=== PATIENT | female | born 1990 | race Caucasian/White ===

== ENCOUNTER 2022-09-21 15:17 | Emergency (ER) | payer BC, SELFPAY ==
--- NOTE | 2022-09-21 15:19 | ED.URI ---
HPI - URI/Sore Throat General Chief Complaint: Upper Respiratory Infection Stated Complaint: Headache, diarrhea, fever, sore throat Source: patient and RN notes reviewed Mode of arrival: ambulatory Limitations: no limitations History of Present Illness HPI Narrative: 31-year-old female presents with concern for sore throat, fever, headache, diarrhea, chest discomfort. She reports she has taken Tylenol. She denies cough, vomiting. MD elicited complaint: fever and sore throat Related Data Allergies Allergy/AdvReac Type Severity Reaction Status Date / Time No Known Allergies Allergy Verified 09/21/22 15:20 Review of Systems Review of Systems: CONSTITUTIONAL: Reports malaise,fever. EYES: Denies visual changes, redness, or discharge. ENT: Denies rhinorrhea, congestion, sinus pain, otalgia. Reports sore throat. CARDIOVASCULAR: Denies chest pain, palpitations, or edema. RESPIRATORY: Denies cough. Denies dyspnea. GASTROINTESTINAL: Denies abdominal pain, nausea, vomiting. Reports diarrhea SKIN: Denies rash or itching. MUSCULOSKELETAL: Denies myalgia. NEUROLOGIC: Denies headache. All systems reviewed & are unremarkable except as noted in HPI and below PMFSH Past Medical History Medical History (Updated 09/21/22 @ 15:47 by Mindy Hartley NP) Diabetes mellitus Surgical History Surgical History No significant past surgical history Social History Social History Smoking status: Never smoker Comments At time of signature, agree with nursing past medical, surgical, social and family history. There is no relevant family history pertinent to the presenting complaint Exam Narrative: GENERAL: Well-appearing, well-nourished, and in no acute distress. HEAD: Normocephalic EYES: PERRLA, conjunctivae clear ENT: Nares clear, turbinates edematous and erythematous, clear discharge. Mucous membranes moist. TM pearly youssef with dull light reflex bilaterally; no tragal tenderness. Oropharynx not erythematous without lesions. Tonsils not enlarged and without exudate, no drooling, no hoarseness, no trismus, uvula midline. NECK: Supple. No lymphadenopathy CHEST: Clear to auscultation, breath sounds equal. No wheezing, rhonchi, rales, or stridor. No respiratory distress, speaks in full sentences. HEART: Regular rate and rhythm. No murmur heard. SKIN: Warm, dry, no rash. NEURO: Alert and oriented x3. PSYCH: Normal mood and affect Course Course Emergency Course: Patient is aware of diagnosis, understands and agrees to treatment plan. Anticipatory guidance given. Patient agrees to follow-up as directed and is aware of reasons to seek care at the emergency department. Portions of this record may have been created with voice recognition software Level of Care: Express Care Visit Vital Signs Vital signs: Reviewed. MDM - URI/Sore Throat MDM Narrative Medical decision making narrative: Differential diagnosis considered: Monson virus, strep pharyngitis, allergic rhinitis, upper respiratory tract infection, sinusitis, rhinosinusitis, nasopharyngitis. viral pharyngitis, otitis media, otitis externa, pneumonia, bronchitis, viral cough syndrome, viral syndrome, and influenza. Exam findings show no acute concerns or changes; patient is non-toxic appearing and is in no distress. Patient is appropriate for outpatient treatment and follow-up. Lab Data Attestation: I reviewed the patient's lab results. Critical Care Time Critical Care Time Critical Care Time: No Discharge Plan Discharge Clinical Impression: Acute streptococcal pharyngitis Patient Disposition: Home, Self-Care Condition: Stable Instructions: Strep Throat (ED) Additional Instructions: -Take the medication as prescribed. Throw away the toothbrush after 24hours of antibiotic. -Eat and drink things that are easy to swallow, like tea or soup, or popsicles to suck on. -O
[2022-09-21 15:25] VITALS: BP 124/68; PULSE 83; RESP 16; TEMP 36.3; O2SAT 100
[2022-09-21 15:43] VITALS: BP 124/68; PULSE 83; RESP 16; TEMP 36.3; O2SAT 100
== END 2022-09-21 15:51 | disposition home or self-care (01) ==
PROVIDERS: Emergency Provider Nurse Practitioner
DX: J02.0 Streptococcal pharyngitis (principal); Z20.822 Contact with and (suspected) exposure to COVID-19; E11.9 Type 2 diabetes mellitus without complications
CPT/HCPCS: 87426; 87804; 87880; 99213; C9803; G0463

== ENCOUNTER 2023-07-02 14:34 | Emergency (ER) | payer OTHER, SELFPAY ==
--- NOTE | ~2023-07-02 | CT_ITS ---
EXAMINATION: CT cervical spine wo con DATE: 07/02/2023 18:50 INDICATION: neck pain TECHNIQUE: Computed tomography (CT) of the cervical spine was performed without intravenous contrast. Automated exposure control and iterative reconstruction technique were employed. The dose-length pro duct was 537.38 mGy-cm. COMPARISON: 06/14/2018. FINDINGS: Vertebral Body Alignment: Intact. Craniocervical and atlantoaxial alignment: Minimal degenerative change. Alignment intact. Osseous structures/fracture: No evidence of a lytic or blastic process in the visualized spine. No e vidence of acute fracture. Cervical soft tissues: The paraspinal soft tissues planes are maintained. Multiple bilateral calcifie d and noncalcified thyroid nodules measuring up to 1.7 cm Degenerative changes: No significant degenerative changes. IMPRESSION: No acute fracture or traumatic malalignment in the cervical spine. No severe central canal or neural foraminal narrowing. Multiple calcified and noncalcified thyroid nodules, recommend nonemergent, outpatient thyroid ultras ound for further characterization. Reviewed, dictated and finalized at location [facility]. IMPRESSION: No acute fracture or traumatic malalignment in the cervical spine. No severe central canal or neural foraminal narrowing. Multiple calcified and noncalcified thyroid nodules, recommend nonemergent, out patient thyroid ultrasound for further characterization.
--- NOTE | ~2023-07-02 | XR_ITS ---
XR chest 2V DATE: 07/02/2023 15:01 INDICATION: Chest pain TECHNIQUE: PA and lateral views COMPARISON: 03/15/2019 2 view chest is not available from PACS for review but was reported negative. FINDINGS: Normal heart size. No hilar or mediastinal enlargement. No pulmonary infiltrate or consolid ation, pleural effusion or pulmonary vascular congestion or pneumothorax is detected. IMPRESSION: Negative Reviewed, dictated and finalized at location [facility]. IMPRESSION: Negative
[2023-07-02 14:42] VITALS: BP 137/79; PULSE 60; RESP 18; TEMP 36.6; O2SAT 100
--- NOTE | 2023-07-02 14:43 | ECG_ITS ---
Measurements Intervals [place] Rate: 58 P: -3 MO: 149 QRS: 7 QRSD: 95 T: -2 QT: 419 QTc: 414 Interpretive Statements SINUS BRADYCARDIA MODERATE VOLTAGE CRITERIA FOR LVH, CONSIDER NORMAL VARIANT [MEETS CRITERIA IN ONE OF: R(aVL), S(V1), R(V5), R(V5/V6)+S(V1)] NO PREVIOUS ECG AVAILABLE FOR COMPARISON Electronically Signed On 07-03-2023 13:21:18 CDT by Eliud Blanco M.D.
[2023-07-02 14:52] LABS: Basophils Percent Auto 0.4 % (0.2-1.2); Eosinophils Absolute Auto 0.3 K/mm3 (0-0.3); Eosinophils Percent Auto 2.6 % (0-4.4); Hematocrit 38.6 % (37.0-47.0); Hemoglobin 13.1 g/dL (12.0-15.0); Immature Granulocyte Absolute 0.03 K/mm3 (0.00-0.031); Immature Granulocyte Percent A 0.3 % (0-0.5); Lymphocytes Absolute Auto 3.53 K/mm3 (0.9-3.2); Lymphocytes Percent Auto 34.6 % (18.3-44.2); Mean Corpuscular HGB Conc 33.9 g/dl (32-36); Mean Corpuscular Hemoglobin 29.6 pg (26-34); Mean Corpuscular Volume 87.3 fl (80-100); Mean Platelet Volume 9.3 fl (7.4-10.4); Monocytes Absolute Auto 0.4 K/mm3 (0.1-0.6); Monocytes Percent Auto 4.1 % (2.6-8.5); Neutrophils Absolute Auto 5.9 K/mm3 (1.3-6.7); Platelet Count Result 414 k/mm3 (150-375); Red Blood Count 4.42 M/mm3 (4.2-5.4); Red Cell Distribution Width 12.5 % (11.5-14.5); White Blood Count 10.2 K/mm3 (4.5-10.0)
[2023-07-02 15:02] LABS: Alanine Aminotransferase 23 U/L (6-35); Albumin Level 4.4 g/dL (3.5-5.1); Alkaline Phosphatase 56 U/L (38-126); Anion Gap 6 mmol/L (4-12); Aspartate Amino Transferase 27 U/L (14-36); Bilirubin,Total 0.4 mg/dL (0.2-1.3); Blood Urea Nitrogen 13 mg/dL (7-17); Calcium 9.2 mg/dL (8.4-10.2); Carbon Dioxide 26 mmol/L (22-30); Chloride 104 mmol/L (98-107); Estimated CRCL calculation 90 ml/min; Estimated Glomerular Filt Rate > 60; Glucose 98 mg/dL (65-110); Lipase 121 U/L (23-300); Potassium 3.5 mmol/L (3.4-5.0); Sodium 136 mmol/L (137-145)
[2023-07-02 15:03] LABS: INR 0.9; Partial Thromboplastin Time 25.6 Seconds (22.3-36.8); Prothrombin Time 12.5 Seconds (11.1-14.7)
[2023-07-02 15:14] LABS: Troponin I < 0.012 ng/mL (0.000-0.034)
[2023-07-02 15:36] VITALS: BP 117/83; PULSE 58; PULSE 59; RESP 17; O2SAT 98
[2023-07-02 16:54] VITALS: BP 110/74; PULSE 55; RESP 16; O2SAT 100
[2023-07-02 17:08] VITALS: O2SAT 100
--- NOTE | 2023-07-02 17:25 | ED.CHESTPAIN ---
HPI - Chest Pain General Chief Complaint: Chest Pain <Yessi Morris PA-C - Last Filed: 07/02/23 19:23> Stated Complaint: chest pain, swelling neck, numb finger <Yessi Morris PA-C - Last Filed: 07/02/23 19:23> Time Seen by Provider: 07/02/23 17:03 <Yessi Morris PA-C - Last Filed: 07/02/23 19:23> History of Present Illness HPI narrative: 32 Year old female with a reported history of type 2 diabetes and hyperlipidemia presents emergency department for multiple medical complaints. She is complaining of intermittent chest pain for 1 month. Patient states the chest pain is located just to the left of her sternum. She states it seems to occur when she is moving and while at work, however she did notice it occurred while she was lying in her bed the other night during a storm. She states the chest pain is associated with shortness of breath and lightheadedness. She describes that the pain is a squeezing pain. She is also reporting pain to her posterior neck that she describes as tightness that started 2 days ago. States she woke up in the morning and has since felt the tightness that is worse with movement. She denies recent injury or trauma. She is also reporting intermittent tingling and numbness in all of her fingers that has been going on for about a month as well. States she brought this up her PCP recheck her A1c which is within normal range. States she has been treated for diabetes given improvement in her A1c. She reports cardiac history and her grandmother, otherwise denies known familial cardiac disease. Denies lower extremity edema, recent surgeries or hospitalizations, history of VTE. States she has seen her PCP multiple times regarding her chest pain and was started on anxiety medications which have helped some. States she is supposed to follow-up with a medical file clerk but she has yet to set up an appointment. She was told by her PCP if her chest pain continues to report to the ER for evaluation which prompted her to come today. She is also complaining of a rash to her left axilla that occurred approximately 1 week ago. She describes the pain as burning. Denies fever, cough congestion. <Yessi Morris PA-C - Last Filed: 07/02/23 19:23> Related Data Allergies/Adverse Reactions: Allergies Allergy/AdvReac Type Severity Reaction Status Date / Time No Known Allergies Allergy Verified 07/02/23 17:03 <Yessi Morris PA-C - Last Filed: 07/02/23 19:23> Review of Systems Review of Systems: CONSTITUTIONAL: Denies fever, chills, or sweats. EYES: Denies visual changes, redness, or discharge. ENT: Denies rhinorrhea, congestion, sore throat, or otalgia. CARDIOVASCULAR: See HPI RESPIRATORY: Denies cough or dyspnea. GASTROINTESTINAL: Denies abdominal pain, nausea, vomiting, or diarrhea. GENITOURINARY: Denies dysuria or hematuria. SKIN: See HPI MUSCULOSKELETAL: See HPI NEUROLOGIC: Denies headache, numbness, or weakness. PSYCHIATRIC: Denies anxiety or depression. <Yessi Morris PA-C - Last Filed: 07/02/23 19:23> [facility] Past Medical History Medical History: Medical History (Updated 07/03/23 @ 00:09 by Sterling Betancur) Diabetes mellitus <Yessi Morris PA-C - Last Filed: 07/02/23 19:23> Surgical History Surgical History: Surgical History No significant past surgical history <Yessi Morris PA-C - Last Filed: 07/02/23 19:23> Social History Social History: Social History Smoking status: Never smoker <Yessi Morris PA-C - Last Filed: 07/02/23 19:23> Exam Narrative: GENERAL: Well-appearing, well-nourished, and in no acute distress. HEAD: Normocephalic, atraumatic. EYES: PERRLA and EOMI. ENT: Nares clear, no rhinorrhea or epistaxis. Mucous membranes moist. NECK: Supple. CHEST: Clear to auscultation. No respiratory
--- NOTE | 2023-07-02 17:43 | ECG_ITS ---
Measurements Intervals [place] Rate: 44 P: 17 WI: 137 QRS: 11 QRSD: 93 T: 2 QT: 452 QTc: 389 Interpretive Statements SINUS BRADYCARDIA WITH SINUS ARRHYTHMIA MINIMAL VOLTAGE CRITERIA FOR LVH, CONSIDER NORMAL VARIANT [MEETS CRITERIA IN ONE OF: R(aVL), S(V1), R(V5), R(V5/V6)+S(V1)] COMPARED TO ECG 07/02/2023 14:49:59 SINUS ARRHYTHMIA NOW PRESENT Electronically Signed On 07-03-2023 13:22:24 CDT by Eliud Blanco M.D.
[2023-07-02] MEDS: CYCLOBENZAPRINE HCL 10 MG TABLET PO (17:44)
[2023-07-02] MEDS: IBUPROFEN 400 MG TABLET 800 MG PO (17:44)
[2023-07-02 18:23] LABS: Troponin I < 0.012 ng/mL (0.000-0.034)
[2023-07-02 18:41] VITALS: BP 121/81; PULSE 58; RESP 19; O2SAT 100
[2023-07-02 19:30] VITALS: BP 122/80; PULSE 60; RESP 18; O2SAT 98
== END 2023-07-02 19:31 | disposition home or self-care (01) ==
PROVIDERS: Emergency Medicine; Emergency Provider Physician Assistant; PCP Internal Medicine
DX: S16.1XXA Strain of muscle, fascia and tendon at neck level, initial encounter (principal); R07.89 Other chest pain; B37.9 Candidiasis, unspecified; L30.4 Erythema intertrigo; E04.1 Nontoxic single thyroid nodule; E11.9 Type 2 diabetes mellitus without complications; E78.5 Hyperlipidemia, unspecified
CPT/HCPCS: 36415; 71046; 72125; 80053; 81025; 83690; 84484; 85025; 85610; 85730; 93005; 99284; A9270

== ENCOUNTER 2023-08-19 08:25 | Outpatient (CLI) | payer OTHER, SELFPAY ==
--- NOTE | 2023-08-19 08:54 | ECHO_ITS ---
Patient Info Name: Darlene Pineda Age: 32 years : 1990 Gender: Female Ht: 63 in Wt: 235 lbs BSA: 2.23 m2 HR: 53 bpm BP: 129 / 88 mmHg Technical Quality: Fair Exam Date: 08/19/2023 9:05 AM Exam Location: Echo Lab Patient Status: Outpatient Admit Date: 08/19/2023 Staff Ordering Physician: Tk Tillman DO [employer]: Gordy Figueroa RDCS Attending Provider: Tk Tillman DO Referring Physician: Primo BOOKER; Exam Type: CA echo doppler color flow Study Info Indications R06.09 - Other forms of dyspnea Complete two-dimensional, color flow and Doppler transthoracic echocardiogram is performed. Summary 1. Complete two-dimensional, color flow and Doppler transthoracic echocardiogram is performed. 2. Left ventricular chamber dimension is normal. 3. Left ventricular systolic function is normal, estimated at 65-70%. 4. The left ventricular diastolic function is normal. 5. E/e' 6 is not elevated. 6. There is trace mitral valve regurgitation. 7. No pulmonary hypertension, estimated pulmonary arterial systolic pressure is 29 mmHg. Left Ventricle E/e' 6 is not elevated. Left ventricular chamber dimension is normal. Left ventricular systolic function is normal, estimated at 65-70%. The left ventricular diastolic function is normal. Right Ventricle Right ventricular systolic function is normal and with normal TAPSE 2.5 cm. Right ventricular chamber dimension is normal. Left Atria Left atrial chamber dimension is normal. Right Atria Right atrial chamber dimension is normal. Aortic Valve The aortic valve is trileaflet. There is no aortic valve stenosis. There is no aortic valve regurgitation. Pulmonic Valve There is no pulmonic regurgitation. Mitral Valve There is no mitral valve stenosis. There is trace mitral valve regurgitation. Tricuspid Valve There is no tricuspid valve regurgitation. No pulmonary hypertension, estimated pulmonary arterial systolic pressure is 29 mmHg. Pericardium/Pleural There is no pericardial effusion. Inferior Vena Cava Normal inferior vena cava with >50% collapse upon inspiration consistent with normal right atrial pressure, 5 mmHg. Aorta The aortic root size at the sinus of Valsalva is normal. Left Ventricular Outflow Tract Name Value Normal LVOT 2D LVOT Diameter 2.0 cm LVOT Doppler LVOT Peak Gradient 5 mmHg LVOT Mean Gradient 2 mmHg LVOT VTI 24 cm LVOT VTI/AV VTI Ratio 0.7 LVOT Stroke Volume 72 ml LVOT CO 3.8 l/min LVOT CI 1.7 l/min/m2 Pulmonic Valve Name Value Normal RVOT Doppler RVOT Peak Gradient 3 mmHg PV Doppler PV Peak Gradient 5 mmHg PV Regurgit
--- NOTE | 2023-08-19 10:39 | EST_ITS ---
Patient Info Name: Darlene Pineda Age: 32 years : 1990 Gender: Female Ht: 63 in Wt: 235 lbs BSA: 2.23 m2 HR: 60 bpm BP: 110 / 63 mmHg Heart Rhythm: Sinus Rhythm Exam Date: 08/19/2023 10:52 AM Exam Location: Echo Lab Patient Status: Outpatient Admit Date: 08/19/2023 Staff Ordering Physician: Tk Tillman DO Attending Provider: Tk Tillman DO Exercise Technologist: Yasmine Kennedy CT Exercise Physician: Tk Tillman DO Exam Type: CA stress test treadmill Study Info Indications R06.09 - Other forms of dyspnea R07.89 - Other chest pain A treadmill exercise stress test was performed. Summary 1. 1. Negative Willie exercise stress test for ischemic ST changes by ECG criteria. 2. 2. Good functional capacity, achieving 8.9 MET of workload. 3. 3. Hypertensive response to exercise. 4. 4. Appropriate HR response to exercise. 5. 5. Appropriate HR recovery at 1 minute post exercise. 6. 6. No imaging with stress testing. 7. 7. Patient informed of the above results. Protocol: Willie Stress ECG Details Stage: REST Duration (min): 2 min : 53 sec Speed (mph): 0.0 Grade (%): 0 HR (bpm): 61 SBP (mmHg): 110 DBP (mmHg): 63 METS: --- Stage: REST Duration (min): 11 min : 20 sec Speed (mph): 0.0 Grade (%): 0 HR (bpm): 69 SBP (mmHg): 110 DBP (mmHg): 63 METS: --- Stage: STAGE 1 Duration (min): 1 min : 0 sec Speed (mph): 1.7 Grade (%): 10 HR (bpm): 116 SBP (mmHg): 110 DBP (mmHg): 63 METS: --- Stage: STAGE 1 Duration (min): 2 min : 0 sec Speed (mph): 1.7 Grade (%): 10 HR (bpm): 126 SBP (mmHg): 110 DBP (mmHg): 63 METS: --- Stage: STAGE 1 Duration (min): 3 min : 0 sec Speed (mph): 1.7 Grade (%): 10 HR (bpm): 120 SBP (mmHg): 166 DBP (mmHg): 73 METS: --- Stage: STAGE 2 Duration (min): 1 min : 0 sec Speed (mph): 2.5 Grade (%): 12 HR (bpm): 141 SBP (mmHg): 166 DBP (mmHg): 73 METS: --- Stage: STAGE 2 Duration (min): 2 min : 0 sec Speed (mph): 2.5 Grade (%): 12 HR (bpm): 148 SBP (mmHg): 208 DBP (mmHg): 69 METS: --- Stage: STAGE 2 Duration (min): 3 min : 0 sec Speed (mph): 2.5 Grade (%): 12 HR (bpm): 159 SBP (mmHg): 208 DBP (mmHg): 69 METS: --- Stage: STAGE 3 Duration (min): 1 min : 0 sec Speed (mph): 3.4 Grade (%): 14 HR (bpm): 170 SBP (mmHg): 209 DBP (mmHg): 129 METS: --- Stage: STAGE 3 Duration (min): 1 min : 0 sec Speed (mph): 3.4 Grade (%): 14 HR (bpm): 170 SBP (mmHg): 209 DBP (mmHg): 129 METS: --- Stage: RECOVERY Duration (min): 0 min : 59 sec Speed (mph): 0.0 Grade (%): 0 HR (bpm): 137 SBP (mmHg): 209 DBP (mmHg): 129 METS: --- Stage: RECOVERY Duration (min): 1 min : 59 sec Speed (mph): 0.0 Grade (%): 0 HR (bpm): 90 SBP (mmHg): 209 DBP (mmHg): 129 METS: --- Stage: RECOVERY Duration (min): 2 min : 59 sec Speed (mph): 0.0 Gr
== END 2023-08-19 08:26 | disposition home or self-care (01) ==
LOC: ANHCARD 08:28
PROVIDERS: PCP Internal Medicine; Visit Provider Internal Medicine Cardiovascular Disease
DX: R07.89 Other chest pain (principal); R06.09 Other forms of dyspnea
CPT/HCPCS: 93017; 93306

== ENCOUNTER 2023-09-02 16:45 | Outpatient (CLI) | payer OTHER, SELFPAY ==
--- NOTE | ~2023-09-02 | US_ITS ---
Thyroid ultrasound. Clinical History: Goiter Findings: Real-time sonography of the thyroid gland was performed. The right lobe measures 5.7 x 2.1 x 2.2 cm. The left lobe measures 5.3 x 1.5 x 2.0 cm. The isthmus is 3 mm in AP diameter. There is a 2.6 x 1.1 x 1.7 cm heterogeneous solid ovoid nodule at the right mid to lower pole. There is an additional 1.9 x 1.5 x 1.7 cm hypoechoic nodule at the posterior right lower pole with probable peripheral calcification. There is a 1.9 x 1.1 x 1.4 cm hypoechoic nodule at the left lower pole of focal cystic areas. Impression: Thyroid nodules as above, most compatible with TR-4 nodules. Given size, FNA should be considered to establish histologic diagnosis, however the multiplicity suggests multinodular goiter. Reviewed, dictated and finalized at [facility]. Impression: Thyroid nodules as above, most compatible with TR-4 nodules. Given size, FNA sh ould be considered to establish histologic diagnosis, however the multiplicity suggests multinodular goiter.
== END 2023-09-02 16:46 | disposition home or self-care (01) ==
LOC: ANHIMG 16:46
PROVIDERS: PCP Internal Medicine; Visit Provider Internal Medicine
DX: E04.2 Nontoxic multinodular goiter (principal)
CPT/HCPCS: 76536

== ENCOUNTER 2024-01-22 15:09 | Emergency (ER) | payer OTHER, SELFPAY ==
[2024-01-22 15:20] VITALS: BP 132/74; PULSE 56; RESP 18; TEMP 36.6; O2SAT 100
[2024-01-22 15:22] VITALS: BP 132/74; PULSE 56; RESP 18; TEMP 36.6; O2SAT 100
--- NOTE | 2024-01-22 16:16 | ED.DENTAL ---
HPI - Dental/Oral General Chief complaint: Dental/Oral Stated complaint: Dental Pain Time Seen by Provider: 01/22/24 16:17 Source: patient, RN notes reviewed and old records reviewed Mode of arrival: ambulatory Limitations: no limitations History of Present Illness HPI Narrative: Patient presents with complaints of right-sided lower molar dental pain for 5 days, worsening. She reports that she is here today because overnight she developed some mild right-sided facial swelling. She denies any injury or trauma. She has been taking ibuprofen for her symptoms with no relief. She has been using mouthwash to try to wash out the affected area. She is able to manage her own secretions, no drooling or stridor noted. Denies any fever, chills, sweats. Voices no other concerns or complaints today. Related Data Home Medications Medication Instructions Recorded Confirmed ergocalciferol (vitamin D2) 1,250 1,250 mcg PO .COMPLEX 07/21/23 01/22/24 mcg (50,000 unit) capsule (Vitamin D2) ferrous sulfate 325 mg (65 mg 325 mg PO DAILY 07/21/23 01/22/24 iron) tablet (Feosol) Allergies Allergy/AdvReac Type Severity Reaction Status Date / Time No Known Allergies Allergy Verified 01/22/24 15:20 Review of Systems Review of Systems: All systems reviewed & are unremarkable except as noted in HPI and below Constitutional: Constitutional: Reports no additional constitutional complaints ENT: Reports system reviewed and no additional complaints, except as documented, Reports as per HPI, Reports dental pain and Reports facial pain Cardiovascular: Cardiovascular: Reports no additional cardiovascular complaints Respiratory: Respiratory: Reports no additional respiratory complaints Gastrointestinal: Gastrointestinal: Reports no additional gastrointestinal complaints [facility] Past Medical History Medical History (Updated 01/23/24 @ 00:00 by Sterling Betancur) Diabetes mellitus Surgical History Surgical History No significant past surgical history Social History Social History Smoking status: Never smoker Alcohol intake: current Drinks per week: 2 Alcohol use details: occasionally Substance use: current Substance use type: marijuana Do You Feel Safe in your Home?: Yes Lack of Transportation: No Lack of Food: Never True Current Housing: I Have Housing Concerned About Future Housing: No Difficulty Paying Gas/Electric Bills: No Difficulty Paying for Meds: No Currently Unemployed: No Education: High School Diploma/GED Difficulty w/ Childcare or Family Care: No Comments At the time of my signature, I reviewed and agree with the nursing past medical, surgical, social, and family history. There is no relevant family history pertinent to the patient complaint. Exam Const: General: cooperative, no acute distress, alert and awake Orientation/consciousness: oriented to person, oriented to place and oriented to time HENMT: Head: normal to inspection Mouth: Yes moist mucous membranes Teeth and gingiva: abnormal tooth and associated gingiva (molar) lower right with associated gingival edema and with associated gingival fluctuance Resp: Effort & Inspection: normal respiratory effort and able to speak in complete sentences Auscultation: clear to auscultation bilaterally, no crackles, no rales, no rhonchi and no wheezes Cardio: Palpation: normal PMI Rate: regular rate Rhythm: regular rhythm Heart sounds: S1 normal heart sound present and S2 normal heart sound present Neuro: General: oriented to person, oriented to place and oriented to time Cranial nerves: Yes CN's II-XII intact bilaterally Psych: Appearance: grossly normal Thought process: Normal thought process present Insight: Good insight present (Psych) Judgement: Good judgement present (Psych) Course Course Level of Care: Express Care Visit Vital Signs Vital signs: Vital Signs Temperature 97.8 F 01/22/24 15:20 Pulse Rate 56 L 01/22/24 15:20 Respiratory Rate 18 01/22/24 15:20 Blood Pressure 132/74 01/22/24 15:20 Pulse Oximetry 100 01/22/24 15:20 Oxygen Delivery Room Air 01/22/24 15:20 Temperature 97.8 F 01/22/24 15:22 Pulse Rate 56 L 01/22/24 15:22 Respiratory Rate 18 01/22/24 15:22 Blood Pressure 132/74 01/22/24 15:22 Pulse Oximetry 100 01/22/24 15:22 Oxygen Delivery Room Air 01/22/24 15:22 Reviewed MDM - Dental/Oral MDM Narrative Medical decision making narrative: Patient nontoxic appearing, stable for discharge home on p.o. antibiotic therapy. Encouraged dental follow-up, PCP follow-up. Emergency department with new or worse symptoms. Discharge instructions reviewed with patient, as well as provided in writing per nursing staff. The instructions also include specific and strict return/GO TO THE ER as well as f/u information. All questions have been answered, and the patient deny any further questions with discharge and discharge plan. Some parts of this dictation were generated by voice recognition software and may contain typographical and/or grammatical inaccuracies. Differential Diagnosis Differential diagnosis: Likely gingival abscess, dental caries, toothache and dental abscess Discharge Plan Discharge Clinical Impression: Dental infection Patient Disposition: Home, Self-Care Condition: Stable Instructions: Antibiotic Form, Dental Abscess (ED) Additional Instructions: Follow with dentist and primary care provider. Emergency Department for new or worse symptoms. Take all medications as prescribed Patient Language: Ghanaian Prescriptions: New amoxicillin 875 mg tablet 875 mg PO Q12H Qty: 20 0RF naproxen 500 mg tablet,delayed release (DR/EC) 500 mg PO BID PRN (Reason: pain) Qty: 30 0RF No Action ferrous sulfate [Feosol] 325 mg (65 mg iron) tablet 325 mg PO DAILY ergocalciferol (vitamin D2) [Vitamin D2] 1,250 mcg (50,000 unit) capsule 1,250 mcg PO .COMPLEX Rx Instructions: 1,250 mcg orally 2x a month; Follow-up/Referrals: Mallorie,Alisa Nunez MD [Primary Care Provider] - 1 Week Stand Alone Forms: Work/School Release IP Time of Disposition: 16:26
== END 2024-01-22 16:30 | disposition home or self-care (01) ==
PROVIDERS: Emergency Provider Nurse Practitioner Family; PCP Internal Medicine
DX: K04.7 Periapical abscess without sinus (principal); E11.9 Type 2 diabetes mellitus without complications; F12.90 Cannabis use, unspecified, uncomplicated
CPT/HCPCS: 99213; G0463

== ENCOUNTER 2024-03-20 15:34 | Emergency (ER) | payer MEDICAID, SELFPAY ==
[2024-03-20 16:35] VITALS: BP 125/78; PULSE 89; RESP 16; TEMP 37.5; O2SAT 98
--- NOTE | 2024-03-20 17:09 | ED_ITS ---
HPI - URI/Sore Throat General Chief Complaint: Upper Respiratory Infection Stated Complaint: Fever/Cough Time Seen by Provider: 03/20/24 17:09 Source: patient, RN notes reviewed and old records reviewed Mode of arrival: ambulatory Limitations: no limitations History of Present Illness HPI Narrative: 33-year-old female presents to the [facility] with complaints of fever and cough that started yesterday. Has taken Tylenol Related Data Home Medications ?Medication ?Instructions ?Recorded ?Confirmed ?Last Taken ?Type ergocalciferol (vitamin D2) 1,250 1,250 mcg PO .COMPLEX 07/21/23 03/20/24 Unknown History mcg (50,000 unit) capsule (Vitamin D2) ferrous sulfate 325 mg (65 mg 325 mg PO DAILY 07/21/23 03/20/24 Unknown History iron) tablet (Feosol) Allergies Allergy/AdvReac Type Severity Reaction Status Date / Time No Known Allergies Allergy Verified 03/20/24 16:34 Review of Systems Review of Systems: All systems reviewed & are unremarkable except as noted in HPI and below Constitutional: Constitutional: Reports as per HPI ENT: Reports as per HPI Cardiovascular: Cardiovascular: Reports no additional cardiovascular complaints, Denies chest pain and Denies dyspnea Respiratory: Respiratory: Reports no additional respiratory complaints, Denies chest congestion, Denies cough and Denies dyspnea Musculoskeletal: Musculoskeletal: Reports no additional musculoskeletal complaints Integumentary/Breasts: Skin/Breast: Reports system reviewed and no additional complaints, except as docu PMFSH Past Medical History Medical History Diabetes mellitus Surgical History Surgical History No significant past surgical history Social History Social History Smoking status: Never smoker Alcohol intake: current Drinks per week: 2 Alcohol use details: occasionally Substance use: current Substance use type: marijuana Do You Feel Safe in your Home?: Yes Lack of Transportation: No Lack of Food: Never True Current Housing: I Have Housing Concerned About Future Housing: No Difficulty Paying Gas/Electric Bills: No Difficulty Paying for Meds: No Currently Unemployed: No Education: High School Diploma/GED Difficulty w/ Childcare or Family Care: No Comments At the time of my signature, I reviewed and agree with the nursing past medical, surgical, social, and family history. There is no relevant family history pertinent to the patient complaint. Exam Const: General: cooperative, healthy appearing, comfortable, no acute distr ess, well developed, alert and well nourished Nutritional Appearance: well nourished Orientation/consciousness: patient oriented x3 Limitations: no limitations HENMT: Head: normal to inspection Ears: hearing grossly normal bilaterally, external ears normal, TM's normal bilaterally, EAC's normal, mastoids normal and no periauricular adenopathy Face/Nose/Sinus: normal facial exam and face symmetric Face and sinus: normal facial exam and face symmetric Mouth: Yes Normal oral and palatal mucosa present, Yes lip normal, Yes tongue normal and Yes moist mucous membranes Throat: posterior oropharynx normal, uvula midline, postnasal drainage and no uvular edema Eyes: General: appearance normal, both eyes and all related structures Neck: Neck: normal visual inspection, full ROM, no lymphadenopathy and no meningeal signs Chest: Chest palpation & inspection: normal inspection of the chest Resp: Effort & Inspection: normal respiratory effort and able to speak in complete sentences Auscultation: clear to auscultation bilaterally, no crackles, no rales, no rhonchi and no wheezes Cardio: Rate: regular rate Skin: General skin exam: normal color and no rashes or lesions noted Neuro: General: patient oriented x3, gait normal, moves all extremities and no meningeal signs Cognition (Neuro): normal cognition Speech: normal speech Gait exam (Neuro): Normal gait present Extrem: General: normal to inspection, full ROM, capillary refill normal and normal gait Psych: Appearance: grossly normal and well kempt Mental Status: mental status grossly normal Speech and movement: Normal speech and movement present and Clear speech present Affect: normal affect Attitude: cooperative Course Course Level of Care: Express Care Visit Vital Signs Vital signs: Vital Signs Temperature 99.5 F 03/20/24 16:35 Pulse Rate 89 03/20/24 16:35 Respiratory Rate 16 03/20/24 16:35 Blood Pressure 125/78 03/20/24 16:35 Pulse Oximetry 98 03/20/24 16:35 Oxygen Delivery Room Air 03/20/24 16:35 Temperature 99.5 F 03/20/24 16:35 Pulse Rate 89 03/20/24 16:35 Respiratory Rate 16 03/20/24 16:35 Blood Pressure 125/78 03/20/24 16:35 Pulse Oximetry 98 03/20/24 16:35 Oxygen Delivery Room Air 03/20/24 16:35 Reviewed MDM - URI/Sore Throat MDM Narrative Medical decision making narrative: Patient sitting comfortably in exam room. Nontoxic, vitals stable. Patient in no acute distress. Patient presents with 1 day history of URI symptoms. Flu, COVID, strep were negative will culture for strep No acute findings other than postnasal drainage noted on exam Patient appropriate for outpatient treatment and follow-up Discharge instructions reviewed with patient, as well as provided in writing p er nursing staff. The instructions also include specific and strict return/GO TO THE ER as well as f/u information. All questions have been answered, and the patient deny any further questions with discharge and discharge plan. Some parts of this dictation were generated by voice recognition software and may contain typographical and/or grammatical inaccuracies. Differential Diagnosis Differential diagnosis: Likely upper respiratory infection, otitis media, sinusitis, viral infection, bronchitis, influenza and pharyngitis Lab Data Labs: Lab Results 03/20/24 03/20/24 Range/Units 17:07 17:08 POC Influenza A Ag Negative (Negative) POC Influenza B Ag Negative (Negative) POC SARS CoV-2 Ag Negative (Negative) POC Grp A Strep Screen Negative (Negative) Reviewed Critical Care Time Critical Care Time Critical Care Time: No Discharge Plan Discharge Clinical Impression: PND (post-nasal drip) Upper respiratory infection Qualifiers: URI type: unspecified viral URI Qualified Code(s): J06.9 - Acute upper respiratory infection, unspecified Patient Disposition: Home, Self-Care Condition: Stable Instructions: Antibiotic Form, Upper Respiratory Infection (DC), Postnasal Drip (DC) Additional Instructions: Your rapid strep swab was negative today at [facility]. A throat culture will be sent to the laboratory for further testing. If the test is positive, you will receive a phone call within 48 hours and an appropriate antibiotic will be initiated at that time. Your rapid COVID test were negative Your rapid flu test was negative Your symptoms are likely due to a viral illness, which is not treated with antibiotics. Typically viral infections last 7-10 days, can linger for couple of weeks. It is very important to treat your symptoms. Drink plenty of water, Gatorade, Pedialyte, ice pops or Jell-O. -Alternate Tylenol and Motrin per package directions for fever or pain. You can alternate every 4 hours -Antihistamine medication such as Benadryl at night and Zyrtec/Claritin/Jeannette during the day can help improve symptoms. -doing daily nasal irrigations can help relieve pressure your sinuses. Things like a Neti pot -Use Flonase twice a day for 5 days then daily to help reduce the inflammation and dry up your sinuses. -You can also use Mucinex. Be sure to drink plenty of water with this medication at least 8 ounces with every dose and it is important to drink 8 to 10 glasses of water per day. Water is a natural decongestant -Eat and drink things that are easy to swallow, like tea or soup, or popsicles. -Oral rinses such as: Salt water gargles and/or may use topical anesthetic (eg. Chloraseptic spray) or lozenges to relieve dryness or throat pain). -Frequent hand washing or hand data analytics architect is one of the best ways to prevent spread of infection. -Using a vaporizer or humidifier at night will also help thin secretions and help with coughing up phlegm. -Follow up with primary care provider in 7-10 days if condition is not improving - For new or worsening symptoms go directly to the nearest ER Patient Language: Sinhala Prescriptions: No Action naproxen 500 mg tablet,delayed release (DR/EC) 500 mg PO BID PRN (Reason: pain) Qty: 30 0RF ferrous sulfate [Feosol] 325 mg (65 mg iron) tablet 325 mg PO DAILY ergocalciferol (vitamin D2) [Vitamin D2] 1,250 mcg (50,000 unit) capsule 1,250 mcg PO .COMPLEX Rx Instructions: 1,250 mcg orally 2x a month; Follow-up/Referrals: Mallorie,Alisa Nunez MD [Primary Care Provider] - 2 Weeks (express care follow up ) Stand Alone Forms: Work/School Release IP Time of Disposition: 17:14
[2024-03-20 17:16] LABS: EDINFLUASCREEN Negative (Negative); EDINFLUBSCREEN Negative (Negative); EDSTREPNEGPOS1 Negative (Negative)
[2024-03-20 17:16] LABS: EDCOVIDSCREEN Negative (Negative)
== END 2024-03-20 17:17 | disposition home or self-care (01) ==
PROVIDERS: Emergency Provider Nurse Practitioner; PCP Internal Medicine
DX: J06.9 Acute upper respiratory infection, unspecified (principal); E11.9 Type 2 diabetes mellitus without complications; Z20.822 Contact with and (suspected) exposure to COVID-19
CPT/HCPCS: 87081; 87426; 87804; 87880; 99213; G0463

== ENCOUNTER 2024-07-04 16:51 | Emergency (ER) | payer OTHER, SELFPAY ==
--- NOTE | ~2024-07-04 | XR_ITS ---
XR hand RT min 3V Ordering provider: Mindy Elena APRN History: . pain, base of thumb . Comparison: None. FINDINGS: BONES: No acute fracture or dislocation. JOINT SPACES: Normal. SOFT TISSUES: Normal. IMPRESSION: No acute osseous abnormality right hand. Reviewed, dictated and finalized at location A.
--- NOTE | 2024-07-04 16:54 | ED.UPPEXIN ---
HPI - Extremity Injury (Upper) General Chief Complaint: Extremity Injury, Upper Stated Complaint: Right Hand Thumb Pain Time Seen by Provider: 07/04/24 17:02 Source: patient, RN notes reviewed and old records reviewed Mode of arrival: ambulatory Limitations: no limitations History of Present Illness HPI narrative: 33-year-old female presents to the [facility] with right base of thumb pain since Wednesday. Slipped fell landing on her hand. Has been taken ibuprofen. Has full range of motion, sensation intact. Related Data Home Medications ?Medication ?Instructions ?Recorded ?Confirmed ?Last Taken ?Type No Home Medications 07/04/24 Unknown History Allergies Allergy/AdvReac Type Severity Reaction Status Date / Time No Known Allergies Allergy Verified 07/04/24 16:58 Review of Systems Review of Systems: All systems reviewed & are unremarkable except as noted in HPI and below Constitutional: Constitutional: Reports no additional constitutional complaints ENT: Reports system reviewed and no additional complaints, except as documented Cardiovascular: Cardiovascular: Reports no additional cardiovascular complaints, Denies chest pain and Denies dyspnea Respiratory: Respiratory: Reports no additional respiratory complaints, Denies chest congestion, Denies cough and Denies dyspnea Musculoskeletal: Musculoskeletal: Reports as per HPI and Reports arthralgias Integumentary/Breasts: Skin/Breast: Reports system reviewed and no additional complaints, except as docu [facility] Past Medical History Medical History (Updated 07/04/24 @ 17:23 by Mindy Elena APRN) Diabetes mellitus Surgical History Surgical History No significant past surgical history Social History Social History Smoking status: Never smoker Alcohol intake: current Drinks per week: 2 Alcohol use details: occasionally Substance use: current Substance use type: marijuana Do You Feel Safe in your Home?: Yes Lack of Transportation: No Lack of Food: Never True Current Housing: I Have Housing Concerned About Future Housing: No Difficulty Paying Gas/Electric Bills: No Difficulty Paying for Meds: No Currently Unemployed: No Education: High School Diploma/GED Difficulty w/ Childcare or Family Care: No Comments At the time of my signature, I reviewed and agree with the nursing past medical, surgical, social, and family history. There is no relevant family history pertinent to the patient complaint. Exam Const: General: cooperative, healthy appearing, comfortable, no acute distress, well developed, alert and well nourished Nutritional Appearance: well nourished and obese Orientation/consciousness: patient oriented x3 Limitations: no limitations HENMT: Head: normal to inspection Eyes: General: appearance normal, both eyes and all related structures Alignment and Position: alignment normal Neck: Neck: normal visual inspection, full ROM, no lymphadenopathy and no meningeal signs Chest: Chest palpation & inspection: normal inspection of the chest Resp: Effort & Inspection: normal respiratory effort and able to speak in complete sentences Cardio: Rate: regular rate Skin: General skin exam: normal color and no rashes or lesions noted Neuro: General: patient oriented x3, gait normal, moves all extremities and no meningeal signs Cognition (Neuro): normal cognition Speech: normal speech Gait exam (Neuro): Normal gait present Extrem: General: normal to inspection, full ROM, capillary refill normal and normal gait Right upper extremity: Extremity exam: right hand normal capillary refill, neuromotor exam normal wrist extension normal, thumb opposition normal, thumb IP flexion normal, thumb ADduction normal and fingers 2-5 ABduction normal, tenderness of the thumb at the MCP joint, vascular exam radial pulse present and normal capillary refill, normal ROM of fingers and no swelling; no ecchymosis, no crepitus and no foreign bodies Psych: Appearance: grossly normal and well kempt Mental Status: mental status grossly normal Speech and movement: Normal speech and movement present and Clear speech present Affect: normal affect Attitude: cooperative Course Course Level of Care: Express Care Visit Vital Signs Vital signs: Vital Signs Temperature 97.1 F L 07/04/24 17:03 Pulse Rate 76 07/04/24 17:03 Respiratory Rate 16 07/04/24 17:03 Blood Pressure 126/82 07/04/24 17:03 Pulse Oximetry 99 07/04/24 17:03 Oxygen Delivery Room Air 07/04/24 17:03 Temperature 97.1 F L 07/04/24 17:03 Pulse Rate 76 07/04/24 17:03 Respiratory Rate 16 07/04/24 17:03 Blood Pressure 126/82 07/04/24 17:03 Pulse Oximetry 99 07/04/24 17:03 Oxygen Delivery Room Air 07/04/24 17:03 Reviewed MDM - Extremity Injury (Upper) MDM Narrative Medical decision making narrative: Patient sitting in exam room. Nontoxic, vitals stable. Patient in no acute distress. Patient presents with base of thumb discomfort post fall 3 days ago X-ray negative Patient appropriate for outpatient treatment of thumb sprain with close follow-up. Sreekanth wrap had been apply Discharge instructions reviewed with patient, as well as provided in writing per nursing staff. The instructions also include specific and strict return/GO TO THE ER as well as f/u information. All questions have been answered, and the patient deny any further questions with discharge and discharge plan. Some parts of this dictation were generated by voice recognition software and may contain typographical and/or grammatical inaccuracies. Differential Diagnosis Differential diagnosis: Likely sprain and strain of wrist, finger sprain and fracture of hand Imaging Data Radiologist's impression: XR hand RT min 3V Ordering provider: Mindy Elena APRN History: . pain, base of thumb . Comparison: None. FINDINGS: BONES: No acute fracture or dislocation. JOINT SPACES: Normal. SOFT TISSUES: Normal. IMPRESSION: No acute osseous abnormality right hand. Critical Care Time Critical Care Time Critical Care Time: No Discharge Plan Discharge Clinical Impression: Sprain of hand, thumb, right Patient Disposition: Home Condition: Stable Instructions: Antibiotic Form, Finger Sprain (ED) Additional Instructions: Your Xray did not show a fracture. Ice should be applied to help reduce swelling. It can be used for 20 to 30 minutes, every 2-3 hours while awake. Do not apply ice directly to your skin. Try ring Sreekanth wrap during the day to help support the injury. Take off at night You can alternate ibuprofen 600mg and Tylenol 650mg every 4 hours as needed for pain Please schedule a follow-up visit with your personal physician for further evaluation and treatment within 2 weeks especially if symptoms persist. For new or worsening symptoms go directly to the emergency room Patient Language: Ghanaian Prescriptions: No Action No Home Medications Follow-up/Referrals: Mallorie,Alisa Nunez MD [Primary Care Provider] - 2 Weeks (express care follow up ) Stand Alone Forms: Work/School Release IP Time of Disposition: 17:23
[2024-07-04 17:03] VITALS: BP 126/82; PULSE 76; RESP 16; TEMP 36.2; O2SAT 99
== END 2024-07-04 17:40 | disposition home or self-care (01) ==
PROVIDERS: Emergency Provider Nurse Practitioner; PCP Internal Medicine
DX: S63.601A Unspecified sprain of right thumb, initial encounter (principal); W01.0XXA Fall on same level from slipping, tripping and stumbling without subsequent striking against object, initial encounter; E11.9 Type 2 diabetes mellitus without complications; F12.90 Cannabis use, unspecified, uncomplicated
CPT/HCPCS: 73130; 99213; G0463

== ENCOUNTER 2024-09-20 16:43 | Emergency (ER) | payer OTHER, SELFPAY ==
[2024-09-20 17:25] VITALS: BP 137/65; PULSE 73; RESP 18; TEMP 36.4; O2SAT 100
--- NOTE | 2024-09-20 17:45 | ED.GENADULT ---
HPI - General Adult General Chief complaint: Upper Respiratory Infection Stated complaint: Sore Throat Source: patient Mode of arrival: ambulatory Limitations: no limitations History of Present Illness HPI narrative: patient is a 33-year-old female presenting with complaint of sore throat. Sore throat began 3 days ago. No known exposure to COVID, flu, strep, pneumonia. No treatments initiated prior to arrival. She denies any additional complaints. Related Data Home Medications ?Medication ?Instructions ?Recorded ?Confirmed ?Last Taken ?Type No Home Medications 07/04/24 09/20/24 Unknown History Allergies Allergy/AdvReac Type Severity Reaction Status Date / Time No Known Allergies Allergy Verified 09/20/24 17:59 Review of Systems Review of Systems: CONSTITUTIONAL: Denies body aches, fever, chills, or sweats. EYES: Denies visual changes, redness, or discharge. ENT: reports sore throat Denies rhinorrhea, congestion, or otalgia. CARDIOVASCULAR: Denies chest pain, palpitations, or edema. RESPIRATORY: Denies cough or dyspnea. GASTROINTESTINAL: Denies abdominal pain, nausea, vomiting, or diarrhea. GENITOURINARY: Denies dysuria or hematuria. SKIN: Denies rash, itching, or wounds. MUSCULOSKELETAL: Denies back pain, joint pain, or myalgia. NEUROLOGIC: Denies headache, numbness, tingling, or weakness. PSYCH: Denies depression or anxiety. All systems reviewed & are unremarkable except as noted in HPI and below PMFSH Past Medical History Medical History (Updated 09/20/24 @ 18:10 by Tanner aLzo APRN) Diabetes mellitus Surgical History Surgical History No significant past surgical history Social History Social History Smoking status: Never smoker Alcohol intake: current Drinks per week: 2 Alcohol use details: occasionally Substance use: current Substance use type: marijuana Do You Feel Safe in your Home?: Yes Lack of Transportation: No Lack of Food: Never True Current Housing: I Have Housing Concerned About Future Housing: No Difficulty Paying Gas/Electric Bills: No Difficulty Paying for Meds: No Currently Unemployed: No Education: High School Diploma/GED Difficulty w/ Childcare or Family Care: No Exam Narrative: GENERAL: Well-appearing, well-nourished, Morbidly obese, and in no acute distress. HEAD: Normocephalic, atraumatic. EYES: EOMI. No redness or drainage. Conjunctivae normal. ENT: Mucous membranes pink and moist. Nares clear. No rhinorrhea. TMs normal bilaterally. Throat normal. Uvula midline. there is no trismus. There is no evidence of Leonel angina. NECK: Normal AROM. Supple. No lymphadenopathy. CHEST: No respiratory distress. Clear to auscultation. HEART: Regular rate and rhythm. No murmur appreciated. Normal peripheral pulses EXTREMITIES: Normal range of motion. SKIN: Warm, dry, no rash. Capillary refill normal. Normal skin turgor. NEURO: No focal deficits. Alert and oriented x3. Gait steady. PSYCH: Normal affect. No signs of depression or anxiety. Course Course Emergency Course: Please be advised this is a medical document. It is intended for [id number] communication. It is written in medical language and may contain unfamiliar abbreviations or verbiage. Medical documents are intended to carry relevant information, facts as evident, and the clinical opinion of the practitioner at the time of the encounter. This dictation may have been done utilizing a voice recognition system. Attempts have been made to correct errors. However, there may be uncorrected grammatical, spelling, and recognition errors present. Level of Care: Express Care Visit Vital Signs Vital signs: Vital Signs Temperature 97.6 F 09/20/24 17:25 Pulse Rate 73 09/20/24 17: Respiratory Rate 18 09/20/24 17:25 Blood Pressure 137/65 09/20/24 17:25 Pulse Oximetry 100 09/20/24 17:25 Oxygen Delivery Room Air 09/20/24 17:25 Temperature 97.6 F 09/20/24 17:25 Pulse Rate 73 09/20/24 17:25 Respiratory Rate 18 09/20/24 17:25 Blood Pressure 137/65 09/20/24 17:25 Pulse Oximetry 100 09/20/24 17:25 Oxygen Delivery Room Air 09/20/24 17:25 Medical Decision Making Vital Signs Vital Signs: Vital Signs Temperature 97.6 F 09/20/24 17: Pulse Rate 73 09/20/24 17:25 Respiratory Rate 18 09/20/24 17:25 Blood Pressure 137/65 09/20/24 17:25 Pulse Oximetry 100 09/20/24 17:25 Oxygen Delivery Room Air 09/20/24 17:25 Temperature 97.6 F 09/20/24 17:25 Pulse Rate 73 09/20/24 17:25 Respiratory Rate 18 09/20/24 17:25 Blood Pressure 137/65 09/20/24 17:25 Pulse Oximetry 100 09/20/24 17:25 Oxygen Delivery Room Air 09/20/24 17:25 Lab Data Labs: Lab Results 09/20/24 Range/Units 17:38 POC Grp A Strep Screen Negative (Negative) Discharge Plan Discharge Clinical Impression: Elevated blood pressure reading in office without diagnosis of hypertension Pharyngitis Qualifiers: Pharyngitis/tonsillitis etiology: unspecified etiology Qualified Code(s): J02.9 - Acute pharyngitis, unspecified Patient Disposition: Home Condition: Stable Additional Instructions: Go straight to ER should your symptoms become worse or should any new symptoms develop Patient Language: Pashto Prescriptions: No Action No Home Medications Follow-up/Referrals: Mallorie,Alisa Nunez MD [Primary Care Provider] - 09/21/24 Time of Disposition: 17:48
[2024-09-20 17:53] LABS: EDSTREPNEGPOS1 Negative (Negative)
== END 2024-09-20 18:10 | disposition home or self-care (01) ==
PROVIDERS: Emergency Provider Registered Nurse; PCP Internal Medicine
DX: R03.0 Elevated blood-pressure reading, without diagnosis of hypertension (principal); J02.9 Acute pharyngitis, unspecified; E11.9 Type 2 diabetes mellitus without complications
CPT/HCPCS: 87081; 87880; 99213; G0463

== ENCOUNTER 2025-02-02 11:54 | Emergency (ER) | payer OTHER, SELFPAY ==
--- NOTE | ~2025-02-02 | CT_ITS ---
EXAMINATION: CT abdomen pelvis w con DATE: 02/02/2025 15:09 INDICATION: Left lower quadrant pain TECHNIQUE: Computed tomography (CT) of the abdomen and pelvis was performed with 100 cc Omnipaque 350 intravenous contrast. The dose-length product was 1449.54 mGy-cm. Automated exposure control and iterative reconstruction technique were employed. COMPARISON: CT dated 02/05/2016. FINDINGS: Lung bases unremarkable. Small fat-containing umbilical hernia. No significant pleural or pericardial effusion. Fatty infiltration of the liver. The spleen, pancreas, adrenal glands and kidneys are unremarkable. Gallbladder is present. No abnormal pelvic masses. Nonobstructive bowel gas pattern. No evidence for diverticulitis. No significant vascular abnormality. No lymphadenopathy. No acute osseous abnormality. IMPRESSION: 1. No acute abdominal abnormality. Reviewed, dictated and finalized at location O. ON GRAPHICS DESIGNER
[2025-02-02 11:58] VITALS: BP 151/93; PULSE 85; RESP 16; TEMP 37.2; O2SAT 96
--- OUTSIDE RECORDS SUMMARY | 2025-02-02 12:21 | XMS_ITS | Clinical Summary ---
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 Gender Identity Not on file Sexual Orientation Not on file Plan of Treatment Health Maintenance Due Date Last Done Comments Cervical Cancer Screening 1989 Depression Screening 1989 Hepatitis C Screening 1989 Varicella Vaccines (1 of 2 - 13+ 2-dose series) 2002 Hepatitis B Screening 09/27/2007 Regular Well Visit/Exam 18-64 09/27/2007 HPV Vaccines (1 - 3-dose SCD M series) 2016 Influenza Vaccine (#1) 2024 DTaP/Tdap/Td Vaccine (2 - Td or Tdap) 01/06/2034 01/07/2024 Pneumococcal vaccine <65 Aged Out No longer eligible based on patient's age to complete this topic Insurance [facility] CHOICE PLUS [facility] Care Teams Crown Ironer Operator Relationship Specialty Start Date End Date Unknown, Notinfile PCP - General 10/06/24
--- OUTSIDE RECORDS SUMMARY | 2025-02-02 12:21 | XMS_ITS | Clinical Summary ---
Author Organization [facility] [employer] Address [address] [place] [address] Care Team Providers Care Construction Manager Name Role Phone Unavailable Primary Care Provider Unavailabl e Source Comments [facility] [employer],non-owned Affiliates and Associated Physician Practices is amultiple site organization consisting of ambulatory clinics and hospital sitesin [place], [place], [place] and [place]. This disclosure is being madepursuant to the Care Everywhere program and may not contain all information available regarding this patient. Last updated 17.[facility] [employer] Allergies No known active allergies Medications * Be aware that medications may not be up to date on this document. Alwaysverify current medications with the patient. diphenhydramine /maalox/lidocai ne visc 1:1:1 (MAGIC MOUTHWASH) suspension Swish and swallow 5 mL every 6 hours as needed (gargle and spit out every 6 hours as needed for throat pain) 240 mL 06/29/2016 Active Social History Tobacco Use Types Packs/Day Years Used Date Smoking Tobacco: Passive Smo ke Exposure - Never Smoker Comments Unknown Sex and Gender Information Value Date Recorded Sex Assigned at Not on file Legal Sex Female 9:52 AM CDT Gender Identity Not on file Sexual Orientation Not on file Last Filed Vital Signs Vital Sign Reading Time Taken Comments Blood Pressure 122/76 06/29/2016 10:23 AM CDT Pulse 71 06/29/2016 10:23 AM CDT Temperature 36.8 C (98.3 F) 06/29/2016 10:23 AM CDT Respiratory Rate 16 06/29/2016 10:23 AM CDT Oxygen Saturation 96% 06/29/2016 10:23 AM CDT Inhaled Oxygen Concentration - - Weight 113.4 kg (250 lb) 06/29/2016 10:23 AM CDT Height 160 cm (5' 3) 06/29/2016 10:23 AM CDT Body Mass Index 44.29 06/29/2016 10:23 AM CDT Plan of Treatment Health Maintenance Due Date Last Done Comments HIV SCREENING 2004 HEPATITIS C SCREENING 09/22/2007 DTAP/TDAP/TD VACCINES (1 - Tdap) 2008 HEPATITIS B VACCINE (1 of 3 - 19+ 3-dose series) 2008 HPV VACCINE (1 - 3-dose SCDM series) 2016 DEPRESSION SCREENING 03/29/2024 COVID-19 VACCINE (1 - 2023-2 5 season) 2024 INFLUENZA VACCINE (#1) 2024 ZOSTER VACCINE (1 of 2) 09/27/2039 HIB VACCINE Aged Out No longer eligi ble based on patient's age to complete this topic MENINGOCOCCAL (Group B) VACC INE SHARED DECISION-MAKING Aged Out No longer eligibl e based on patient's age to complete this topic MENINGOCOCCAL GROUPS A/C/Y/W VACCINE Aged Out No longer eligible b ased on patient's age to complete this topic PNEUMOCOCCAL VACCINE Aged Out No long er eligible based on patient's age to complete this topic Insurance
--- OUTSIDE RECORDS SUMMARY | 2025-02-02 13:05 | XMS_ITS | Clinical Summary ---
Author Organization [facility] Address [facility] [place] [address] Care Team Providers Care Oxyacetylene Torch Operator Name Role Phone Unknown, Notinfile Primary Care Provider Unavail able Allergies No known active allergies Social History Tobacco Use Types Packs/Day Years Used Date Smoking Tobacco: Never Assessed Comments Unknown Sex and Gender Information Value Date Recorded Sex Assigned at Not on file Legal Sex Female 3:37 AM ARCHIVIST ECONOMIC HISTORY Gender Identity Not on file Sexual Orientation [...] patient's age to complete this topic Insurance [facility] CHOICE PLUS [facility] HMO/PPO Address: [address] [address] [place] [address] [facility] Care Teams Oxyacetylene Torch Operator Relationship Specialty Start Date End Date Unknown, Notinfile PCP - General 10/06/24
--- OUTSIDE RECORDS SUMMARY | 2025-02-02 13:05 | XMS_ITS | Clinical Summary ---
Author Organization [facility] [employer] Address [address] [place] [address] Care Team Providers Care Automotive Collision Repair Instructor Name Role Phone Unavailable Primary Care Provider Unavailabl e Source Comments [facility] [employer],non-owned Affiliates and Associated Physician Practices is amultiple site organization consisting of ambulatory clinics and hospital sitesin [place], [place], [place] and [place]. This disclosure is being madepursuant to the Care Everywhere program and may not contain all information available regarding this patient. Last updated 17.[facility] [employer] Allergies No known active allergies Medications * [...]
[2025-02-02 13:08] LABS: BEDSIDEPREGUCG Negative (Negative)
[2025-02-02 13:14] LABS: Add Urine Microscopic? YES; Appearance Urine Clear (Clear); Glucose Urine UA Negative (Negative); Leukocyte Esterase Ur Negative LEU/UL (Negative); Nitrate Urine Negative (Negative); Non Pathogenic Casts 0-2; Specific Grav Ur 1.021 (1.001-1.035)
[2025-02-02 13:35] LABS: Hematocrit 41.1 % (37.0-47.0); Hemoglobin 13.8 g/dL (12.0-15.0); Immature Granulocyte Percent A 0.4 % (0-0.5); Lymphocytes Absolute Auto 1.71 K/mm3 (0.9-3.2); Mean Corpuscular HGB Conc 33.6 g/dl (32-36); Mean Corpuscular Hemoglobin 28.5 pg (26-34); Mean Corpuscular Volume 84.9 fl (80-100); Nucleated Red Blood Cells Absolute Auto 0.000 K/mm3 (0.0-0.012); Nucleated Red Blood Cells Perc 0.0 % (0.0-0.2); Platelet Count Result 329 k/mm3 (150-375); Red Blood Count 4.84 M/mm3 (4.2-5.4); White Blood Count 9.2 K/mm3 (4.5-10.0)
[2025-02-02 13:47] LABS: Alanine Aminotransferase 28 U/L (6-35); Albumin Level 4.4 g/dL (3.5-5.1); Alkaline Phosphatase 63 U/L (38-126); Anion Gap 7 mmol/L (4-12); Aspartate Amino Transferase 29 U/L (14-36); Bilirubin,Total 0.9 mg/dL (0.2-1.3); Blood Urea Nitrogen 10 mg/dL (7-17); Calcium 8.7 mg/dL (8.4-10.2); Carbon Dioxide 27 mmol/L (22-30); Chloride 99 mmol/L (98-107); Estimated CRCL calculation 95 ml/min; Estimated Glomerular Filt Rate > 60; Glucose 105 mg/dL (65-110); Lipase 72 U/L (23-300); Potassium 4.3 mmol/L (3.4-5.0); Sodium 133 mmol/L (137-145); Total Protein 7.9 g/dL (6.3-8.2)
--- NOTE | 2025-02-02 14:27 | ED_ITS ---
HPI - Abdominal Pain General Chief Complaint: Abdominal Pain Stated Complaint: LLQ pain Time Seen by Provider: 02/02/25 12:54 Source: patient and family (Grandma) Mode of arrival: ambulatory Limitations: no limitations History of Present Illness HPI narrative: Patient presents with LLQ abdominal pain for 2 weeks. TOMI 6 pm. Not on anticoagulation. No previous abdominal surgeries other than a D&C. Diarrhea started last night, non bloody. Feels dizzy/lightheaded when standing up. This has never happened before. Does not see a lay out and detail drafter. Has never had a colonoscopy. No vaginal bleeding/discharge. Had a temperature of 100.4F at home, also felt chilled. Nauseated but no vomiting. Irregular periods. LMP 8/14 but previous told has PCOS. PCP is [facility] in [place] and previous had an ObGyn. Related Data Allergies Allergy/AdvReac Type Severity Reaction Status Date / Time No Known Allergies Allergy Verified 09/20/24 17:59 PMFSH Past Medical History Medical History Obesity PCOS (polycystic ovarian syndrome) Diabetes mellitus Surgical History Surgical History H/O dilation and curettage Social History Social History Alcohol intake: current Drinks per week: 2 Alcohol use details: occasionally Substance use: current Substance use type: marijuana Do You Feel Safe in your Home?: Yes Lack of Transportation: No Lack of Food: Never True Current Housing: I Have Housing Concerned About Future Housing: No Difficulty Paying Gas/Electric Bills: No Difficulty Paying for Meds: No Currently Unemployed: No Education: High School Diploma/GED Difficulty w/ Childcare or Family Care: No Exam 2 Narrative: GENERAL: Well-appearing, well-nourished HEAD: Normocephalic, atraumatic. EYES: Non injected, non icteric ENT: Nares clear, no rhinorrhea or epistaxis. Gross auditory acuity intact. NECK: Supple. No meningismus. CHEST: Speaking in full sentences. No respiratory distress. HEART: Regular rate and rhythm. . ABDOMEN: Obese but Soft, nondistended. No rigidity or guarding. Not peritoneal. TTP LLQ but also, to a lesser degree, TTP RLQ although patient denies having pain at rest here. EXTREMITIES: Normal range of motion. No lower extremity edema. SKIN: Warm, dry, no rash. NEURO: No focal deficits. Alert and oriented. Answering questions. Following commands. Normal speech without aphasia or dysarthria. PSYCH: Normal mood and affect. Course Vital Signs Vital signs: Vital Signs Temperature 99 F 02/02/25 11:58 Pulse Rate 85 02/02/25 11:58 Respiratory Rate 16 02/02/25 11:58 Blood Pressure 151/93 H 02/02/25 11:58 Pulse Oximetry 96 02/02/25 11:58 Temperature 99 F 02/02/25 11:58 Pulse Rate 85 02/02/25 11:58 Respiratory Rate 16 02/02/25 11:58 Blood Pressure 151/93 H 02/02/25 11:58 Pulse Oximetry 96 02/02/25 11:58 MDM - Abdominal Pain MDM Narrative Medical decision making narrative: Patient presents with LLQ abdominal pain. Started having diarrheal stool last night. Also low grade fever 100.4F at home. In the emergency department she is afebrile with acceptable vital signs, hypertension. CC with mild abnormalities on the differential but otherwise without leukocytosis anemia thrombocytopenia. Urinalysis with microscopic hematuria. is negative. Mild hyponatremia. Seen previously. Normal renal function. I appreciate constipation on CT scan despite official radiology read as negative (other than Nonobstructive bowel gas pattern. ). Discussed these findings with the patient, that it is not uncommon for liquid stool to be able to get around stool ball from constipation. Advised a bowel regimen including stool softeners and laxative as necessary. Given Rx. Also for Bentyl. Otherwise stable for DC. Patient denies needing a work note as she does not work today or tomorrow. Differential Diagnosis Differential diagnosis: Likely abdominal pain, acute appendicitis, calculus of kidney, constipation, diverticulitis, endometriosis, gastroenteritis and other (UTI; ovarian cyst; considered PID/TOA; acute viral syndrome/influenza; enteritis/colitis) Lab Data Attestation: I reviewed the patient's lab results. 02/02/25 13:27 02/02/25 13:27 Labs: Lab Results 02/02/25 02/02/25 02/02/25 Range/Units 13:05 13:06 13:27 WBC 9.2 (4.5-10.0) K/mm3 RBC 4.84 (4.2-5.4) M/mm3 Hgb 13.8 (12.0-15.0) g/dL Hct 41.1 (37.0-47.0) % MCV 84.9 (80-100) fl MCH 28.5 (26-34) pg MCHC 33.6 (32-36) g/dl RDW 12.7 (11.5-14.5) % Plt Count 329 (150-375) k/mm3 MPV 9.0 (7.4-10.4) fl Immature Gran % (Auto) 0.4 (0-0.5) % Neut % (Auto) 75.3 H (45.5-73.1) % Lymph % (Auto) 18.7 (18.3-44.2) % [place] % (Auto) 4.5 (2.6-8.5) % Eos % (Auto) 0.9 (0-4.4) % Baso % (Auto) 0.2 (0.2-1.2) % Lymph # (Auto) 1.71 (0.9-3.2) K/mm3 [place] # (Auto) 0.4 (0.1-0.6) K/mm3 Eos # (Auto) 0.1 (0-0.3) K/mm3 Baso # (Auto) 0.0 (0.0-0.1) K/mm3 Abs Immat Gran (auto) 0.04 H (0.00-0.031) K/mm3 Absolute Neuts (auto) 6.9 H (1.3-6.7) K/mm3 Absolute Nucleated RBC 0.000 (0.0-0.012) K/mm3 Nucleated RBC % 0.0 (0.0-0.2) % Sodium 133 L (137-145) mmol/L Potassium 4.3 (3.4-5.0) mmol/L Chloride 99 (98-107) mmol/L Carbon Dioxide 27 (22-30) mmol/L Anion Gap 7 (4-12) mmol/L BUN 10 (7-17) mg/dL Creatinine 0.89 (0.7-1.0) mg/dL Estim Creat Clear Calc 95 ml/min Estimated GFR > 60 (59 - ) Glucose 105 (65-110) mg/dL Calcium 8.7 (8.4-10.2) mg/dL Total Bilirubin 0.9 (0.2-1.3) mg/dL AST 29 (14-36) U/L ALT 28 (6-35) U/L Alkaline Phosphatase 63 (38-126) U/L Total Protein 7.9 (6.3-8.2) g/dL Albumin 4.4 (3.5-5.1) g/dL Lipase 72 (23-300) U/L Urine Color Yellow (Yellow) Urine Appearance Clear (Clear) Urine pH 5.5 (5.0-9.0) Ur Specific [place] 1.021 (1.001-1.035) Urine Protein Negative (Negative) mg/dL Urine Glucose (UA) Negative (Negative) mg/dL Urine Ketones Negative (Negative) mg/dL Ur Blood (Man) Trace (Negative) Urine Nitrate Negative (Negative) Urine Bilirubin Negative (Negative) Urine Urobilinogen 0.2 (<2.0) mg/dL Leukocyte Esterase Rfl Negative (Negative) LINDEN/UL Urine RBC 3-5 H (0-2) /hpf Urine WBC 0-5 (0-3) /hpf Ur Squamous Epith Cells None seen (Few) /hpf Urine Bacteria None seen /hpf Urine Casts 0-2 POC Urine HCG, Qual Negative (Negative) Imaging Data Attestation: I personally reviewed and interpreted this imaging study as follows: My impression: There does appear to be a fair amount of stool burden particularly in the left lower quadrant consistent with constipation on my independent interpretation of CT scan Radiologist's impression: ITS Impressions Abdomen/Pelvis CT 02/02/25 15:10 IMPRESSION: 1. No acute abdominal abnormality. Discharge Plan Discharge Clinical Impression: Abdominal pain, LLQ, Hematuria, microscopic, Hyponatremia, Constipation Patient Disposition: Home Condition: Stable Instructions: Antibiotic Form, Constipation (ED), High Fiber Diet (ED), Abdominal Pain (ED) Additional Instructions: As we discussed, your workup did not reveal a clear cause of your symptoms although I appreciate constipation on my interpretation of your CT scan. Drink plenty of fluids to maintain your hydration in incorporate fiber in to foods in your diet. You can also supplement with Metamucil/fiber/psyllium in addition to MiraLax. If still not having a sufficient bowel movement and or relief of pain, the laxative magnesium citrate may help. Dicyclomine/Bentyl works on the smooth muscle of the GI tract the on her upper the cramping sensation. Follow-up with your primary care doctor. Return to the emergency department any new or worsening symptoms. Patient Language: Palestinian Prescriptions: New dicyclomine 20 mg tablet 20 mg PO BID Qty: 20 0RF magnesium citrate Solution 150 ml PO DAILY PRN (Reason: constipation) Qty: 296 0RF Metamucil 3.4 gram/5.4 gram powder 1 tbsp PO DAILY Qty: 660 0RF Rx Instructions: mix into at least 8 oz of water or juice before administering polyethylene glycol 3350 [Miralax] 17 gram/dose powder 17 g PO DAILY Qty: 119 0RF Follow-up/Referrals: Mallorie,Alisa Nunez MD [Primary Care Provider, Unknown] Time of Disposition: 16:14
[2025-02-02] MEDS: ONDANSETRON INJ 4 MG/2 ML VIAL IV PUSH (14:42)
[2025-02-02] MEDS: MORPHINE SULFATE (*CRX) 4 MG/ML INJ IV PUSH (14:42)
[2025-02-02] MEDS: DICYCLOMINE HCL 10 MG CAPSULE 20 MG PO (15:59)
== END 2025-02-02 16:28 | disposition home or self-care (01) ==
PROVIDERS: Emergency Provider Student in an Organized Health Care Education/Training Program; PCP Internal Medicine
DX: R10.32 Left lower quadrant pain (principal); K59.00 Constipation, unspecified; R31.29 Other microscopic hematuria; E28.2 Polycystic ovarian syndrome; E11.9 Type 2 diabetes mellitus without complications; E66.9 Obesity, unspecified; Z68.41 Body mass index [BMI] 40.0-44.9, adult
CPT/HCPCS: 36415; 74177; 80053; 81001; 81025; 83690; 85025; 96374; 96375; 99284; A9270; J2270; J2405; Q9967